=== PATIENT | female | born 1990 | race Caucasian/White ===

== ENCOUNTER 2018-09-16 15:13 | Emergency (ER) | payer MEDICAID ==
--- NOTE | 2018-09-16 16:21 | ER Document Report ---
ED Medical Screen (RME) - General Chief Complaint: Psych Problem Stated Complaint: PSYCH EVAL Time Seen by Provider: 09/16/18 16:13 Mode of Arrival: Ambulatory Information source: Patient TRAVEL OUTSIDE OF THE [place] IN LAST 30 DAYS: No - HPI Patient complains to provider of: Manic behavior Notes: 09/16/18 16:20 27-year-old female brought to the emergency room by mobile crisis for manic behavior, apparently she made threats to her fianc and her mother of physical harm, however she denies that to me now 09/16/18 16:21 RAPID MEDICAL EVALUATION DISCLOSURE I have seen this patient as part of a Rapid Medical Evaluation and, if applicable, placed any initially appropriate orders. The patient will be seen and fully evaluated, including a full history and physical exam, by a provider (in Main ED or Fast Track) when a room becomes available. - Related Data Allergies/Adverse Reactions: aripiprazole [From Abilify] Allergy (Verified 11/02/13 08:01) pertussis vaccine,fluid [Pertussis Vaccine,Fluid] Allergy (Verified 11/02/13 08:01) hydrocodone [Hydrocodone] Adverse Reaction (Verified 11/02/13 08:01) tramadol [Tramadol] Adverse Reaction (Verified 11/02/13 08:01) Past Medical History Neurological Medical History: Reports: Hx Migraine Musculoskeltal Medical History: Reports Hx Musculoskeletal Trauma Psychiatric Medical History: Reports: Hx Bipolar Disorder, Hx Depression Traumatic Medical History: Reports: Hx Spine Fracture Past Surgical History: Reports: Hx Adenoidectomy, Hx Myringotomy - Immunizations Immunizations up to date: Yes Hx Diphtheria, Pertussis, Tetanus Vaccination: Yes Physical Exam - Vital signs Vitals: Temp Pulse Resp BP Pulse Ox 98.0 F 111 H 17 143/108 H 100 09/16/18 15:23 09/16/18 15:23 09/16/18 15:23 09/16/18 15:23 09/16/18 15:23 Course - Vital Signs Vital signs: Temp Pulse Resp BP Pulse Ox 98.0 F 111 H 17 143/108 H 100 09/16/18 15:23 09/16/18 15:23 09/16/18 15:23 09/16/18 15:23 09/16/18 15:23
--- NOTE | 2018-09-16 18:24 | ER Document Report ---
Addendum entered and electronically signed by PATRICK PRINCE MD 09/19/18 09:11: Discharge - Discharge Clinical Impression: Manic behavior Bipolar disorder Qualifiers: Active/Remission status: remission status unspecified Qualified Code(s): F31.9 - Bipolar disorder, unspecified Condition: Stable Disposition: HOME, SELF-CARE Additional Instructions: You have been evaluated by both medical and behavioral health teams and have been deemed appropriate for discharge. you are recommended to follow up with outpatient mental health services; you have been provided a local recourse list of area providers including mobile crisis contact information. Bipolar Disorder Bipolar disorder is also called manic-depressive disorder. Depression alternates with brain hyperactivity called reggie. Each phase lasts from several days to a few weeks. We don't know exactly what causes bipolar disorder, but it's treatable. During the "manic phase," you may feel elated and energetic. You may have racing thoughts, rapid speech, increased activity, and grandiose ideas. During this time, you may not realize how poor your judgement is. Inappropriate spending, drug abuse, excessive alcohol use, marriage problems, and irre sponsible sexual behavior are common during the manic phase. During the "depressive phase," you might feel depressed, guilty, worthless, fatigued, and unable to concentrate. You might have thoughts of suicide. Good treatments are available for bipolar disorder. [place] is a classic drug for bipolar disorder, and is still often useful. If the manic phase is very mild, an antidepressant alone can be prescribed. If the manic phase is very severe, an antipsychotic medicine (such as Haldol) may be needed. The treatment must be matched to your symptoms, so it's important to work closely with your psychiatric care provider. Contact your physician, the hospital emergency center, crisis line, or your counsellor if you are losing control or having self-destructive thoughts. AT ANY TIME, IF YOUR SYMPTOMS CHANGE SIGNIFICANTLY OR WORSEN OR YOU DEVELOP NEW SYMPTOMS, RETURN TO THE EMERGENCY DEPARTMENT IMMEDIATELY FOR RE-EVALUATION. Referrals: [facility] [Outside] - Follow up as needed Addendum entered and electronically signed by MAR GODINEZ LCSWA 09/19/18 08:51: Discharge - Discharge Clinical Impression: Manic behavior Bipolar disorder Qualifiers: Active/Remission status: remission status unspecified Qualified Code(s): F31.9 - Bipolar disorder, unspecified Condition: Stable Disposition: HOME, SELF-CARE Additional Instructions: You have been evaluated by both medical and behavioral health teams and have been deemed appropriate for discharge. you are recommended to follow up with outpatient mental health services; you have been provided a local recourse list of area providers including mobile crisis contact information. Bipolar Disorder Bipolar disorder is also called manic-depressive disorder. Depression alternates with brain hyperactivity called reggie. Each phase lasts from several days to a few weeks. We don't know exactly what causes bipolar disorder, but it's treatable. During the "manic phase," you may feel elated and energetic. You may have racing thoughts, rapid speech, increased activity, and grandiose ideas. During this time, you may not realize how poor your judgement is. Inappropriate spending, drug abuse, excessive alcohol use, marriage problems, and irresponsible sexual behavior are common during the manic phase. During the "depressive phase," you might feel depressed, guilty, worthless, fatigued, and unable to concentrate. You might have thoughts of suicide. Good treatments are available for bipolar disorder. [place] is a classic drug for bipolar disorder, and is still often useful. If the manic phase is very mild, an antidepressant alone can be prescribed. If the manic phase is very severe, an antipsychotic medicine (such as Haldol) may be needed. The treatment must be matched to your symptoms, so it's important to work closely with your psychiatric care provider. Contact your physician, the hospital emergency center, crisis line, or your counsellor if you are losing control or having self-destructive thoughts. AT ANY TIME, IF YOUR SYMPTOMS CHANGE SIGNIFICANTLY OR WORSEN OR YOU DEVELOP NEW SYMPTOMS, RETURN TO THE EMERGENCY DEPARTMENT IMMEDIATELY FOR RE-EVALUATION. Referrals: [facility] [Outside] - Follow up as needed Original Note: ED Psych Disorder / Suicide <PATRICK PRINCE - Last Filed: 09/17/18 15:25> - General Mode of Arrival: Ambulatory TRAVEL OUTSIDE OF THE [place] IN LAST 30 DAYS: No <JOHN PAUL CHEATHAM - Last Filed: 09/17/18 21:17> - General Chief Complaint: Psych Problem Stated Complaint: PSYCH EVAL Time Seen by Provider: 09/16/18 16:13 Notes: Patient brought in by mobile crisis for having made aggressive comments towards her fianc and her mother today. When questioned, patient says she has a history of bipolar disorder, PTSD, and depression and was on medications, but no longer taking them. She presents in a hyper state although she is fairly well controlled without any medications. Denies any suicidal intent or thoughts. Denies using any illicit drugs except marijuana. Patient used to be a very frequent visitor here to this emergency department, but this is her first visit in over 2 years. (JOHN PAUL CHEATHAM) - Related Data Allergies/Adverse Reactions: aripiprazole [From Abilify] Allergy (Verified 11/02/13 08:01) pertussis vaccine,fluid [Pertussis Vaccine,Fluid] Allergy (Verified 11/02/13 08:01) hydrocodone [Hydrocodone] Adverse Reaction (Verified 11/02/13 08:01) tramadol [Tramadol] Adverse Reaction (Verified 11/02/13 08:01) Past Medical History - General Information source: Patient - Social History Smoking Status: Current Every Day Smoker Frequency of alcohol use: None Drug Abuse: None Family History: Arthritis, CAD, CVA, Hyperlipidemia, Hypertension, Malignancy. denies: COPD, DM, Thyroid Disfunction Patient has suicidal ideation: No Patient has homicidal ideation: No - Past Medical History Cardiac Medical History: Reports: Hx Hypertension Neurological Medical History: Reports: Hx Migraine Musculoskeletal Medical History: Reports Hx Musculoskeletal Trauma Psychiatric Medical History: Reports: Hx Attention Deficit Hyperactivity Disorder, Hx Bipolar Disorder, Hx Depression, Hx Post Traumatic Stress Disorder Traumatic Medical History: Reports: Hx Spine Fracture Past Surgical History: Reports: Hx Adenoidectomy, Hx Myringotomy - Immunizations Immunizations up to date: Yes Hx Diphtheria, Pertussis, Tetanus Vaccination: Yes <JOHN PAUL CHEATHAM - Last Filed: 09/17/18 21:17> Review of Systems <JOHN PAUL CHEATHAM - Last Filed: 09/17/18 21:17> - Review of Systems Notes: REVIEW OF SYSTEMS: CONSTITUTIONAL : Denies fever. EENT: Denies eye, ear, nose or mouth or throat pain or other symptoms. CARDIOVASCULAR: Denies chest pain. RESPIRATORY: Denies cough, chest congestion, or shortness of breath. GASTROINTESTINAL: Denies abdominal pain or nausea, vomiting, or diarrhea. GENITOURINARY: Denies difficulty or painful urinating, urinary frequency, blood in urine. MUSCULOSKELETAL: Denies back or neck pain. Denies joint pain or swelling. SKIN: Denies rash or skin lesions. NEUROLOGICAL: Denies LOC or altered mental status. Denies headache. Denies sensory loss or motor deficits. ALL OTHER SYSTEMS REVIEWED AND NEGATIVE. (JOHN PAUL CHEATHAM) Physical Exam - Vital signs Interpretation: Hypertensive - Mild, Tachycardic - Mild <JOHN PAUL CHEATHAM - Last Filed: 09/17/18 21:17> - Vital signs Vitals: Temp Pulse Resp BP Pulse Ox 98.0 F 111 H 17 143/108 H 100 09/16/18 15:23 09/16/18 15:23 09/16/18 15:23 09/16/18 15:23 09/16/18 15:23 Notes: PHYSICAL EXAMINATION: GENERAL: Well-appearing, in no acute distress. Hyper active and talking fast, although she stops and relaxes periodically. HEAD: Atraumatic, normocephalic. Patient has numerous multicolored, plastic toy looking keys woven into her hair. EYES: Pupils equal round and reactive to light, extraocular movements intact. ENT: oropharynx clear without exudates. Moist mucous membranes. NECK: Normal range of motion, supple. LUNGS: Breath sounds clear and equal bilaterally. HEART: Regular rate and rhythm without murmurs. ABDOMEN: Soft, nontender. No guarding or rebound. No masses. BACK: No tenderness throughout entire back. EXTREMITIES: Normal range of motion without pain. NEUROLOGICAL: Normal speech, normal gait. Normal sensory, motor, and reflex exams. Awake, alert, and oriented x3. Cranial nerves normal. PSYCH: Hyperactive, fairly rapid speech. Seems to be oriented. SKIN: Warm, dry, no rashes. (JOHN PAUL CHEATHAM) Course - Laboratory Result Diagrams: 09/16/18 21:00 09/16/18 21:00 <PATRICK PRINCE - Last Filed: 09/17/18 15:25> - Laboratory Result Diagrams: 09/16/18 21:00 09/16/18 21:00 <JOHN PAUL CHEATHAM - Last Filed: 09/17/18 21:17> - Re-evaluation Re-evalutation: 09/16/18 18:59 Patient will be kept overnight for evaluation by mental health in the morning. (JOHN PAUL CHEATHAM) - Vital Signs Vital signs: Temp Pulse Resp BP Pulse Ox 98.2 F 112 H 16 138/91 H 100 09/17/18 19:40 09/17/18 20:39 09/17/18 19:40 09/17/18 19:40 09/17/18 19:40 - Laboratory Laboratory results interpreted by me: 09/16/18 09/16/18 18:50 21:00 Potassium 3.3 L Chloride 108 H Carbon Dioxide 19 L Glucose 118 H AST 40 H Urine Protein 30 H Salicylates < 1.0 L Acetaminophen < 10 L Discharge <PATRICK PRINCE - Last Filed: 09/17/18 15:25> <JOHN PAUL CHEATHAM - Last Filed: 09/17/18 21:17> - Discharge Clinical Impression: Bipolar disorder, Manic behavior Condition: Stable
[2018-09-16] MEDS: BENZTROPINE MESYLATE INJ 2 MG/2 ML AMPULE IM SCH (18:26)
[2018-09-16] MEDS: CHLORPROMAZINE HCL INJ 25 MG/1 ML AMPULE IM PRN (18:27)
[2018-09-16 19:55] LABS: APPEARANCE,URINE TURBID; BILIRUBIN,URINE NEGATIVE (NEGATIVE); CALCIUM OXALATE CRYSTALS,URINE TOO NUMEROUS TO CNT /HPF; COLOR,URINE YELLOW; GLUCOSE, URINE NEGATIVE (NEGATIVE); KETONES,URINE NEGATIVE (NEGATIVE); LEUKOCYTE ESTERASE,URINE NEGATIVE (NEGATIVE); NITRITE,URINE NEGATIVE (NEGATIVE); PROTEIN,URINE 30 mg/dL (NEGATIVE); URINE SPECIFIC GRAVITY 1.024; UROBILINOGEN,URINE NEGATIVE mg/dL (<2.0)
[2018-09-16 20:03] LABS: URINE BARBITURATES SCREEN NEGATIVE; URINE BENZODIAZEPINES SCREEN NEGATIVE; URINE COCAINE SCREEN NEGATIVE; URINE MARIJUANA (THC) SCREEN UNCONFIRMED POSITIVE; URINE METHADONE SCREEN NEGATIVE; URINE PHENCYCLIDINE SCREEN NEGATIVE
[2018-09-16 21:15] LABS: ABSOLUTE EOSINOPHILS # (AUTO) 0.2 10^3/uL (0.0-0.6); ABSOLUTE LYMPHOCYTES (AUTO) 3.2 10^3/uL (0.5-4.7); ABSOLUTE MONOCYTES (AUTO) 0.9 10^3/uL (0.1-1.4); ABSOLUTE NEUT (AUTO) 5.4 10^3/uL (1.7-8.2); BASOPHILS % (AUTO) 0.5 % (0-2); EOSINOPHILS % (AUTO) 1.8 % (0-6); HEMOGLOBIN 14.9 g/dL (12.0-15.5); LYMPHOCYTES % (AUTO) 32.9 % (13-45); MEAN CORPUSCULAR HGB CONC 35.4 g/dL (32.0-36.0); MEAN CORPUSCULAR VOLUME 85 fl (80-97); MONOCYTES % (AUTO) 8.8 % (3-13); PLATELET COUNT 175 10^3/uL (150-450); RED BLOOD COUNT 4.95 10^6/uL (3.72-5.28); TOTAL CELLS COUNTED % (AUTO) 100 %; WHITE BLOOD COUNT 9.7 10^3/uL (4.0-10.5)
[2018-09-16 21:30] LABS: ALANINE AMINOTRANSFERASE 47 U/L (9-52); ALBUMIN 4.4 g/dL (3.5-5.0); ALKALINE PHOSPHATASE 87 U/L (38-126); ANION GAP 12 (5-19); ASPARTATE AMINO TRANSFERASE 40 U/L (14-36); BILIRUBIN,DIRECT 0.2 mg/dL (0.0-0.4); BILIRUBIN,TOTAL 0.5 mg/dL (0.2-1.3); BLOOD UREA NITROGEN 13 mg/dL (7-20); CALCIUM 9.8 mg/dL (8.4-10.2); CARBON DIOXIDE 19 mmol/L (22-30); CHLORIDE 108 mmol/L (98-107); GLUCOSE 118 mg/dL (75-110); POTASSIUM 3.3 mmol/L (3.6-5.0); SODIUM 138.7 mmol/L (137-145); TOTAL PROTEIN 7.2 g/dL (6.3-8.2)
[2018-09-16 21:31] LABS: ACETAMINOPHEN < 10 ug/mL (10-30); ALCOHOL < 10 mg/dL (NONE DETECTED); SALICYLATE < 1.0 mg/dL (2.0-20.0)
[2018-09-17] MEDS: BENZTROPINE MESYLATE INJ 2 MG/2 ML AMPULE IM SCH (09:44)
--- NOTE | 2018-09-17 10:05 | ER Document Report ---
Doctor's Note Notes: 09/17/18 10:03 Getting some patient's chart lab work is reviewed. She did present in a place hyper agitated type state. On reviewing outside records, I found that she filled a prescription for Concerta on 09/14/2018. She has been receiving prescriptions for methylphenidate and she is also being prescribed Suboxone by the same provider out of [place]. 09/17/18 17:44 The plan at this time is to keep the patient on IVC status, and may make medication changes tomorrow depending on how she is doing.
--- NOTE | 2018-09-17 17:10 | EKG REPORT ---
SEVERITY:- BORDERLINE ECG - SINUS RHYTHM INFERIOR Q WAVES, PROBABLY NORMAL VARIATION : Confirmed by: Jana Gan 17-Sep-2018 17:09:47
[2018-09-17] MEDS ORDERED: ACETAMINOPHEN 325 MG TABLET PO ONE (21:41)
[2018-09-17] MEDS: CHLORPROMAZINE HCL INJ 25 MG/1 ML AMPULE IM PRN (21:57)
[2018-09-18] MEDS: BENZTROPINE MESYLATE INJ 2 MG/2 ML AMPULE IM SCH (09:38)
--- NOTE | 2018-09-18 10:13 | PSYCHOLOGICAL NOTE ---
Psych Note - Psych Note Date seen by psych provider: 09/18/18 Time seen by psych provider: 08:10 Psych Note: Reason for Consult: Manic Patient brought in by mobile crisis for having made aggressive comments towards her fianc and her mother today. When questioned, patient says she has a history of bipolar disorder, PTSD, and depression and was on medications, but no longer taking them. Check-in conducted with patient Patient continues to report that she is fine and that she has some friends that actually need assistance not her. She reports that she has been inpatient psychiatric treatment when she was younger to both [facility] and [facility]. She denies any recent inpatient treatments. She confirms she is on Suboxone and states that is for pain and then admits that it could be helping with substance abuse also. She reports that she goes to [facility] for treatment. Clinician notes during interview patient stopped and was unable to continue with conversation until the clinician fixed the clasp on necklace so it was behind the neck and not showing. Patient was also observed earlier attempting to use the restroom and leaving the door open. When asked to close the door the patient stood in the doorway reached out with her hands and stated "I cannot see a cannot close the door." Clinician notes patient walked with a steady gait to the bathroom. Medication recommendations as per psychiatric provider, Dr. Sy are as fo llosterling: Thorazine 50 mg every 8 hours as needed Cogentin 1 mg daily Diagnosis: Bipolar Disorder, per patient history Impression\\plan: Patient is recommended continue under IVC for overnight mental health observation. Patient continues to demonstrate some bizarre behaviors. Patient will be reevaluated. Dr. Rodriguez was consulted to care management of this patient; attending physicians in agreement with recommendations and disposition.
[2018-09-18] MEDS ORDERED: NAPROXEN 250 MG TABLET PO ONE (10:21)
--- NOTE | 2018-09-18 10:22 | ER Document Report ---
Doctor's Note Notes: 09/18/18 10:21 Vitals reviewed. Patient seen and evaluated. She is still disheveled and having manic behaviors. She is redirectable and cooperative but I do not feel she currently understands her medical condition or manic state. Patient is requiring further psychological evaluation either in the emergency room continu ed today or placed in a psychiatric facility.
[2018-09-18] MEDS: FAMOTIDINE 20 MG TABLET PO ONE ×2 (10:43→10:56)
--- NOTE | 2018-09-18 17:38 | PSYCHOLOGICAL NOTE ---
Psych Note - Psych Note Date seen by psych provider: 09/17/18 Time seen by psych provider: 15:00 Psych Note: Reason for consult:Manic Contact Permissions:Valente Patient is a 27 yo female presenting to the ED with [facility] for concerns of reggie. Chart review shows one visit in 2011. Toxicology was positive for THC. Patient reports seeing Dr. Weber regularly and taking the following as prescribed: Prozac, Neurontin, Naproxen, Flexeril, Suboxone, Concerta, and Topamax. Today, she complains of a migraine and refuses to go to the bathroom because "it's too far/I don't like it out there". Patient requests the door be shut and is hard to hear because she is whispering. She reports PTSD, depression, and Bipolar dx "a long time ago" but endorses ADHD. She c/o "being forced into the hospital/everybody says they're worried about me but nobody is listening/don't n eed tocalm down/people keep throwing pills at me/and they all have mental problems and are not taking their medicine/and they think I'm weird because I'm agitated with them". Patient denies SI, HI and AV/H "not in years other than acid". Patient's fiance, Valente, reports living with patient the last 2 months has been "wild ride" with hostility i.e. throwing things at him while he is holding the 6 mo old baby/not caring for the baby (calls him at work to tell him she can't go inside until the baby has stopped crying/not capable of caring for herself (has not bathed in one month)/has been guarded "won't tell me anything"/and for the last 2 weeks has been threatening to kill herself and him (threatened SI/HI then slammed on the brakes while speeding). Patient as well, was seen "rolling up white powder". Patient is alert and oriented x 4. Mood is euthymic with congruent affect. Patient denies SI, HI, and AV/H, does not appear to be responding to internal stimuli, and delusions were noted aeb patient reports her behavior/attire from yesterday is her normal self/has to urinate all day but refuses to go to the restroom because "it's too far/I don't like it out there". Conversational speech was whispering/slurred in the morning then WNL for rate, tone, and prosody towards the end of the day. Eye contact was well maintained. Thought processes were linear, and organized but irrational. Intellectual abilities were estimated within the average range. Attention/concentration was WNL while, insight "I was myself yesterday and was forced to come here because no one would listen", judgment, and impulse control were poor. Diagnosis: Bipolar Disorder, per patient history Medication recommendations as per psychiatric provider, Dr. Sy are as follows: No medication recommendations at this time Impression/Plan: Patient is recommended to remain under IVC for risk of harm to self and other aeb patient denies SI "I love my life", HI and AV/H but collateral report she h asn't bathed in a month and has stopped caring for her children and is threatening to kill herself and others aeb speeding threatens to kill herself and right now then slams on the brakes. Patient is a 27 yo female with Bipolar Disorder who has not been taking her medication, has been self medicating with unknown substance, has increased hostility and erratic, impulsive behavior with onset 2 months ago, and SI/HI for 2 weeks and presented to the ED dressed bizarrely with 2 hats, one eye without makeup, keys and other miscellaneous items in her hair, and her sweater on inside out and upside down. Plan is to hold overnight for further observation and evaluation. Consulted Dr. Rodriguez in the care and treatment of this patient and ED physician who is in agreement with disposition and recommendation.
[2018-09-18] MEDS ORDERED: ACETAMINOPHEN 325 MG TABLET PO ONE (20:30)
[2018-09-18] MEDS: CHLORPROMAZINE HCL INJ 25 MG/1 ML AMPULE IM PRN (20:53)
--- NOTE | 2018-09-18 21:28 | RADIOLOGY REPORT (SQ) ---
EXAM DESCRIPTION: XR ABDOMEN 1 VIEW (KUB) COMPLETED DATE/TME: 09/18/2018 20:33 CLINICAL HISTORY: 27 years, Female, abd pain COMPARISON: EXAM DESCRIPTION: CLINICAL HISTORY: abd pain COMPARISON: None. FINDINGS: Single supine view of the abdomen was submitted. There is no evidence of bowel obstruction. There is no abnormal calcification within the abdomen. There is no acute osseous process visualized. Moderate stool is in the colon. IMPRESSION: Moderate stool. NUMBER OF VIEWS: TECHNIQUE: LIMITATIONS: None. FINDINGS: IMPRESSION: copyright 2010 [employer]- All Rights Reserved
[2018-09-19] MEDS: BENZTROPINE MESYLATE INJ 2 MG/2 ML AMPULE IM SCH (09:22)
[2018-09-19 10:17] VITALS: BP 130/75
--- NOTE | 2018-09-21 13:38 | PSYCHOLOGICAL NOTE ---
Psych Note - Psych Note Date seen by psych provider: 09/19/18 Time seen by psych provider: 07:50 Psych Note: Reason for Consult: Manic Patient brought in by mobile crisis for having made aggressive comments towards her fianc and her mother today. When questioned, patient says she has a history of bipolar disorder, PTSD, and depression and was on medications, but no longer taking them. Check-in conducted with patient Patient is presenting much calmer and able to carry on organized linear and logical conversation. Patient calmly sits on bed and reports that she does take medications for pain from a back injury. She denies any thoughts of wanting harm herself or others and confirms she would like additional information on outpatient mental health providers in the local area. Patient is currently going to [facility] for pain management however agrees she may need additional assistance with her bipolar diagnosis. Medication recommendations as per psychiatric provider, Dr. Sy are as follows: Thorazine 50 mg every 8 hours as needed Cogentin 1 mg daily Diagnosis: Bipolar Disorder, per patient history Impression\plan: Patient is recommended for rescind of IVC and is cleared from acute psychiatric services. Patient no longer meets IVC criteria per [place] GS 120 2C. Patient is no longer presenting manic or demonstrating bizarre behaviors. Patient is able to carry on organized linear and logical conversation. She engaged in problem solving and discussing mental health treatment options. Patient's significant other reports no concern of patient returning home and confirms the part of patient's cleft plan of care i.e. no access to medications weapons and follow through with mental recommendations. Dr. Rodriguez was consulted to care management of this patient; attending physicians in agreement with recommendations and disposition.
== END 2018-09-19 10:18 | disposition home or self-care (01) ==
LOC: ER 15:13
DX: F31.9 Bipolar disorder, unspecified (principal); F17.200 Nicotine dependence, unspecified, uncomplicated; I10 Essential (primary) hypertension
CPT/HCPCS: 93005; 99406; 94640; 99285; 96372; 36415; 80307 ×4; 84703; 85025; 80053; 81001; 93010; J3490 ×4; J0515 ×4; J3230 ×3